=== PATIENT | male | born 1955 | race Caucasian/White ===

== ENCOUNTER 2022-12-13 10:56 | Outpatient (CLI) | payer OTHER, SELFPAY ==
--- NOTE | ~2022-12-13 | US_ITS ---
Renal-Bladder ultrasound Clinical History: Urinary retention Technique: Real-time sonographic imaging of the kidneys and urinary bladder was performed. Findings: The right kidney measures 10.2 cm in length and the left kidney measures 10.9 cm. There is no hydronephrosis or renal calculus identified. Renal cortical echogenicity is increased. No renal ma ss lesion is identified. The urinary bladder is moderately distended at the time of this exam. No intraluminal echoes are iden tified. No abnormal wall thickening is seen. Apparent wall echo shadow complex suggest gallbladder filled with stones. Impression: Increased renal echogenicity suggest chronic medical renal disease. No hydronephrosis. Suspected cholelithiasis, incidentally noted. Reviewed, dictated and finalized at location . Impression: Increased renal echogenicity suggest chronic medical renal disease. No hydronep hrosis. Suspected cholelithiasis, incidentally noted.
== END 2022-12-13 10:57 | disposition home or self-care (01) ==
PROVIDERS: PCP Internal Medicine; Visit Provider Nurse Practitioner
DX: R33.9 Retention of urine, unspecified (principal)
CPT/HCPCS: 76775